=== PATIENT | female | born 1970 | race Caucasian/White ===

== ENCOUNTER 2024-03-16 07:14 | Day surgery (SDC) | payer MEDICAID ==
[~2024-03-16 07:14] MED LIST: Midazolam 1 MG/ML 2 ML SDV IV ONE; Midazolam 1 MG/ML 2 ML SDV ONE; fentaNYL 100 MCG/2 ML SDV IV ONE; fentaNYL 100 MCG/2 ML SDV ONE
[2024-03-16] MEDS: Dextrose 5%-0.45% NaCl 1,000 ML IV SCH (07:51)
[2024-03-16] MEDS: fentaNYL 100 MCG/2 ML SDV IV ONE ×3 (08:27→08:39)
[2024-03-16] MEDS: Midazolam 1 MG/ML 2 ML SDV IV ONE ×6 (08:28→08:37)
[2024-03-16 09:32] VITALS: BP 121/68; PULSE 84
== END 2024-03-16 09:52 | disposition home or self-care (01) ==
LOC: DL.ENDO 07:14
PROVIDERS: ATTEND Internal Medicine Gastroenterology
DX: Z12.11 Encounter for screening for malignant neoplasm of colon (principal); K64.4 Residual hemorrhoidal skin tags; I10 Essential (primary) hypertension; E11.9 Type 2 diabetes mellitus without complications; E78.5 Hyperlipidemia, unspecified; K21.9 Gastro-esophageal reflux disease without esophagitis
CPT/HCPCS: 45378; J2250; J3010; J7799